=== PATIENT | male | born 1985 | race Caucasian/White ===

== ENCOUNTER 2025-01-30 13:35 | Emergency (ER) | payer BC, SELFPAY ==
--- NOTE | ~2025-01-30 | XR_ITS ---
EXAMINATION: XR ribs RT 2V w CXR 2V DATE: 01/30/2025 14:02 INDICATION: Rib pain after wrestling for one week TECHNIQUE: Frontal and lateral images of the chest were obtained and 3 views of the right ribs were obtained. COMPARISON: None FINDINGS: No rib fractures identified. No pneumothorax. No focal infiltrates, pleural effusion or pulmonary edema. Cardiomediastinal silhouette is normal. IMPRESSION: 1. No rib fracture or acute cardiopulmonary disease. If symptoms persist or worsen, consider a short-term follow-up study or additional imaging for further assessment. Reviewed, dictated and finalized at location Q. IMPRESSION: 1. No rib fracture or acute cardiopulmonary disease. If symptoms persist or worsen, consider a short-term follow-up study or additio nal imaging for further assessment.
[2025-01-30 13:39] VITALS: BP 137/77; PULSE 59; RESP 20; TEMP 36.7; O2SAT 99
--- NOTE | 2025-01-30 13:42 | ED_ITS ---
HPI - Chest Pain General Chief Complaint: Chest Pain Stated Complaint: right chest pain, wrestling Source: patient Mode of arrival: ambulatory Limitations: no limitations History of Present Illness HPI narrative: 39-year-old male, smoker presented to the ED with a one-week history of -- right chest wall pain. Pain is pleuritic in nature. It is made worse by deep breathing and coughing. Patient was wrestling with his son who accidentally elbowed his chest. Since then the patient has been having pleuritic chest wall pain. No fever or chills. No shortness of breath. MD complaint: chest pain Onset (ago): week(s) ( 1 week) Timing of current episode: episodic Prior episodes: No Onset: during exertion Pain location: right chest Pain radiation: none Severity: severe Quality: sharp Relieving factors: remaining still Exacerbating factors: inspiration Treatment prior to arrival: other ( Tylenol) Risk Factors Coronary artery disease risk factors: smoking history Related Data Allergies Allergy/AdvReac Type Severity Reaction Status Date / Time No Known Allergies Allergy Verified 01/30/25 13:50 Review of Systems Review of Systems: All systems reviewed & are unremarkable except as noted in HPI and below Constitutional: Constitutional: Reports as per HPI and Reports no additional constitutional complaints Eyes: Eyes: Reports as per HPI and Reports no additional eye complaints ENT: Reports system reviewed and no additional complaints, except as documented and Reports as per HPI Cardiovascular: Cardiovascular: Reports as per HPI and Reports no additional cardiovascular complaints Respiratory: Respiratory: Reports as per HPI, Reports no additional respiratory complaints and Reports cough Comments: right chest wall pain Gastrointestinal: Gastrointestinal: Reports as per HPI and Reports no additional gastrointestinal complaints Genitourinary: Genitourinary: Reports no additional male genitourinary complaints and Reports as per HPI Musculoskeletal: Musculoskeletal: Reports no additional musculoskeletal complaints and Reports as per HPI Integumentary/Breasts: Skin/Breast: Reports system reviewed and no additional complaints, except as docu and Reports as per HPI Comments: no chest wall bruising noted. Neurologic: Reports system reviewed and no additional complaints, except as documented and Reports as per HPI Psychiatric: Psychiatric: Reports no additional psychiatric complaints and Reports as per HPI Endocrine: Endocrine: Reports no additional endocrine complaints and Reports as per HPI Hematologic/Lymphatic: Hematologic/Lymphatic: Reports no additional hematologic/lymphatic complaints and Reports as per HPI Allergic/Immunologic: Allergic/Immunologic: Reports no additional allergic /immunologic complaints and Reports as per HPI Exam Narrative: Afebrile. Vitals are stable. Const: General: no acute distress Nutritional Appearance: thin Orientation/consciousness: patient oriented x3 Limitations: no limitations HENMT: Head: normal to inspection Ears: external ears normal Face/Nose/Sinus: Normal external nose present Face and sinus: normal facial exam Mouth: Yes Normal oral and palatal mucosa present Throat: posterior oropharynx normal Eyes: Conjunctivae: conjunctivae normal Pupils: Equal, round and reactive pupils present EOM: EOMs intact bilaterally Direct Ophthalmoscopy: no photophobia Neck: Neck: normal visual inspection, no lymphadenopathy and no meningeal signs Chest: Chest palpation & inspection: normal inspection of the chest Other: Chest wall tenderness around the nipple on the right side Resp: Effort & Inspection: normal respiratory effort Auscultation: clear to auscultation bilaterally Cardio: Rate: regular rate Rhythm: regular rhythm GI: Auscultation: normal bowel sounds Other: no tenderness/ rigidity /rebound. : General: Yes no CVA tenderness Back/Spine/Pelvis: Back: no CVA tenderness Skin: General skin exam: normal color Rashes: no rashes Wounds: no wounds Neuro: General: patient oriented x3, moves all extremities, no meningeal signs, no focal motor deficits and CN's II-XI intact bilaterally Cranial nerves: Yes Nystagmus not present Speech: normal speech Gait exam (Neuro): Normal gait present Extrem: General: normal to inspection and no clubbing, cyanosis or edema Psych: Mental Status: mental status grossly normal Affect: normal affect Attitude: cooperative Course Course Emergency Course: Right chest wall pain= x-ray of the ribs/chest did not show any fractured ribs. Vital Signs Vital signs: Vital Signs Temperature 36.7 C 01/30/25 13:39 Pulse Rate 59 L 01/30/25 13:39 Respiratory Rate 20 01/30/25 13:39 Blood Pressure 137/77 01/30/25 13:39 Pulse Oximetry 99 01/30/25 13:39 Oxygen Delivery Room Air 01/30/25 13:39 Temperature 36.7 C 01/30/25 13:39 Pulse Rate 59 L 01/30/25 13:39 Respiratory Rate 20 01/30/25 13:39 Blood Pressure 137/77 01/30/25 13:39 Pulse Oximetry 99 01/30/25 13:39 Oxygen Delivery Room Air 01/30/25 13:39 MDM - Chest Pain MDM Narrative Medical decision making narrative: Right chest wall pain Differential Diagnosis Differential diagnosis: Likely pneumothorax Medical Records Data Attestation: I reviewed the patient's medical records. Lab Data Attestation: I reviewed the patient's lab results. Discharge Plan Discharge Clinical Impression: Acute chest wall pain Patient Disposition: Home Condition: Stable Instructions: Antibiotic Form, Chest Wall Pain (ED) Patient Language: [place]ian Prescriptions: New diclofenac sodium 50 mg tablet,delayed release (DR/EC) 50 mg PO TID PRN (Reason: pain) Qty: 30 0RF Follow-up/Referrals: Soren Rodas DO [Primary Care Provider, Family Practice] Time of Disposition: 14:27
[2025-01-30] MEDS: NAPROXEN 250 MG TABLET PO (14:06)
[2025-01-30 14:29] VITALS: BP 130/71; PULSE 57; RESP 20; O2SAT 98
== END 2025-01-30 14:36 | disposition home or self-care (01) ==
LOC: CHSED 14:33
PROVIDERS: Emergency Provider Internal Medicine Critical Care Medicine; Referring Provider Family Medicine
DX: R06.89 Other abnormalities of breathing (principal)
CPT/HCPCS: 71046; 71100; 99283; A9270